=== PATIENT | male | born 2000 | race Hispanic/Latino ===

== ENCOUNTER 2023-04-29 08:40 | Emergency (ER) | payer OTHER ==
[~2023-04-29] VITALS: Ht 175.3 cm; Wt 118.8 kg
[2023-04-29 09:13] LABS: BASOPHILS # (AUTO) 0.07 K/uL (0.00-0.20); BASOPHILS % (AUTO) 0.7 % (0.0-5.0); EOSINOPHILS # (AUTO) 0.06 K/uL (0.00-0.70); EOSINOPHILS % (AUTO) 0.6 % (0.0-8.0); HEMATOCRIT 44.9 % (42-54); IMMATURE GRANULOCYTE ABSOLUTE 0.03 K/uL (0-1); LYMPHOCYTES # (AUTO) 1.8 K/uL (1.0-4.8); LYMPHOCYTES % (AUTO) 18.4 % (21.0-51.0); MEAN CORPUSCULAR HEMOGLOBIN 31.3 pg (27.0-33.0); MEAN CORPUSCULAR HGB CONC 36.3 g/dL (32.0-36.0); MEAN CORPUSCULAR VOLUME 86.2 fL (79-99); MONOCYTES # (AUTO) 0.6 K/uL (0.1-1.0); MONOCYTES % (AUTO) 6.2 % (3.0-13.0); NEUTROPHILS # (AUTO) 7.4 K/uL (1.8-7.7); NEUTROPHILS % (AUTO) 73.8 % (40.0-77.0); PLATELET COUNT (AUTO) 280 K/uL (130-400); RED BLOOD CELL COUNT(AUTO) 5.21 MIL/uL (4.50-6.20); RED CELL DISTRIBUTION WIDTH 11.9 % (11.0-15.5)
[2023-04-29 09:22] LABS: POTASSIUM 3.5 mmol/L (3.5-5.1)
[2023-04-29 09:27] LABS: ALBUMIN 4.3 g/dL (3.5-5.0); BILIRUBIN,TOTAL 0.7 mg/dL (0.2-1.0)
[2023-04-29 09:43] LABS: APPEARANCE,URINE CLEAR (CLEAR); BILIRUBIN,URINE NEGATIVE (NEGATIVE); COLOR,URINE LIGHT-YELLOW (YELLOW); GLUCOSE, URINE (UA) NEGATIVE (NEGATIVE); KETONES,URINE 5 mg/dL (NEGATIVE); LEUKOCYTE ESTERASE ,URINE NEGATIVE Leu/uL (NEGATIVE); NITRATE,URINE NEGATIVE (NEGATIVE); OCCULT BLOOD,URINE LARGE (NEGATIVE); PH,URINE 5.5 (5.0-8.0); PROTEIN,URINE NEGATIVE (NEGATIVE); UROBILINOGEN,URINE 0.2 mg/dL (0.2-1.0)
[2023-04-29 09:50] LABS: ADD UA MICROSCOPIC YES
[2023-04-29 09:58] LABS: MUCUS,URINE RARE LPF (None Seen); RBC,URINE 26-50 /HPF (0-1); SQUAMOUS EPITHELIAL CELL,UR RARE /HPF (0-2)
[2023-04-29] MEDS ORDERED: KETOROLAC 30MG VIAL (30MG/ML) IM ONE (10:00)
[2023-04-29] MEDS: ONDANSETRON ODT 4MG TAB SL SCH (10:06)
[2023-04-29] MEDS: MAG/ALUM/SIMETH 30 ML UDCUP PO ONE (10:06)
[2023-04-29] MEDS: KETOROLAC 30MG VIAL (30MG/ML) IVP ONE ×2 (10:06→10:13)
[2023-04-29] MEDS: 0.9%NACL 1000ML 1,000 ML IV ONE (10:13)
[2023-04-29] MEDS: ONDANSETRON 4MG INJ IVP ONE (10:13)
[2023-04-29 11:57] VITALS: BP 124/89; PULSE 75; RESP 18; O2SAT 100
== END 2023-04-29 12:04 | disposition home or self-care (01) ==
LOC: EDH 08:40
DX: K76.0 Fatty (change of) liver, not elsewhere classified (principal); R30.0 Dysuria; E66.01 Morbid (severe) obesity due to excess calories; Z68.38 Body mass index [BMI] 38.0-38.9, adult
CPT/HCPCS: 99285; 74176; 96374; 96361; 80053; 83690; 85025; 81001; 36415; J7030; J1885; 96375